=== PATIENT | female | born 1980 ===

== ENCOUNTER 2017-07-07 13:10 | Emergency (ER) | payer MEDICAID ==
[2017-07-07 13:43] VITALS: BP 103/65; PULSE 91; RESP 20; TEMP 99.5; O2SAT 98
[2017-07-07] MEDS ORDERED: Sodium Chloride 0.9% 1,000 ML IV ONE (13:49)
--- NOTE | 2017-07-07 13:56 | C.PDOC ---
Time Seen by Provider: 07/07/17 13:41 Chief Complaint (Nursing): Chest Pain Past Medical History Vital Signs: Last Vital Signs Temp 99.5 F 07/07/17 13:35 Pulse 91 H 07/07/17 13:35 Resp 20 07/07/17 13:35 BP 103/65 07/07/17 13:35 Pulse Ox 98 07/07/17 13:35 - Medical History PMH: Pericarditis Family History: States: Unknown Family Hx - Social History Hx Tobacco Use: Yes Hx Alcohol Use: Yes Hx Substance Use: No - Immunization History Hx Tetanus Toxoid Vaccination: Yes Hx Influenza Vaccination: Yes Hx Pneumococcal Vaccination: Yes ED Course And Treatment O2 Sat by Pulse Oximetry: 98 Disposition - Disposition Forms: [employer] (Danish)
[2017-07-07 14:11] LABS: BASO # 0.1 K/uL (0.0-0.2); BASO % 0.8 % (0.0-2.0); EOS # 0.1 K/uL (0.0-0.7); EOS % 0.9 % (0.0-4.0); HEMATOCRIT 33.4 % (34.0-47.0); LYMPH # 2.3 K/uL (1.0-4.3); LYMPH % 27.5 % (20.0-40.0); MEAN CORPUSCULAR HEMOGLOBIN 25.8 pg (27.0-31.0); MEAN CORPUSCULAR HGB CONC 32.6 g/dL (33.0-37.0); MEAN PLATELET VOLUME 7.7 fL (7.2-11.7); MONO # 0.5 K/uL (0.0-0.8); MONO % 6.4 % (0.0-10.0); RED CELL DISTRIBUTION WIDTH 15.3 % (11.5-14.5); WHITE BLOOD COUNT 8.4 K/uL (4.8-10.8)
--- NOTE | 2017-07-07 14:15 | RAD ---
PROCEDURE: CHEST RADIOGRAPH, 1 VIEW HISTORY: chest pain COMPARISON: None available. FINDINGS: LUNGS: Poor inspiration with low lung volumes, crowded bronchovascular markings and mild bibasilar atelectasis. PLEURA: No pneumothorax or pleural fluid seen. CARDIOVASCULAR: Normal. OSSEOUS STRUCTURES: No significant abnormalities. VISUALIZED UPPER ABDOMEN: Normal. OTHER FINDINGS: None. IMPRESSION: Poor inspiration with low lung volumes, crowded bronchovascular markings and mild bibasilar atelectasis.
[2017-07-07 14:22] LABS: ALCOHOL SERUM < 10 mg/dl (0-10); ALKALINE PHOSPHATASE 54 U/L (38-126); ALT/SGPT 25 U/L (9-52); AST/SGOT 20 U/L (14-36); BILIRUBIN,TOTAL 0.3 mg/dL (0.2-1.3); BLOOD UREA NITROGEN 18 mg/dL (7-17); CALCIUM 8.9 mg/dl (8.6-10.4); CARBON DIOXIDE 21 mmol/L (22-30); CHLORIDE 104 mmol/L (98-107); GFR AFRICAN-AMERICAN > 60; GLUCOSE,RANDOM 109 mg/dL (65-105); POTASSIUM 4.1 mmol/L (3.6-5.2); SODIUM 137 mmol/L (132-148); TOTAL PROTEIN 6.2 g/dL (6.3-8.3)
[2017-07-07 14:29] LABS: ALB/GLOB RATIO 1.1 (1.0-2.1)
[2017-07-07 14:31] LABS: MEAN CELL VOLUME 79.1 fL (81.0-99.0)
--- NOTE | 2017-07-07 15:10 | C.PDOC ---
History Of Present Illness 36 y/o female brought in by EMS for midsternal chest pain and bodyaches for 5 days. Patient is homeless and is sleepy on evaluation, limited exam. EMS reports patient was found sleeping but denied any alcohol or drug use. Time Seen by Provider: 07/07/17 13:41 Chief Complaint (Nursing): Chest Pain History Per: EMS History/Exam Limitations: clinical condition Onset/Duration Of Symptoms: Days (5 days ) Current Symptoms Are (Timing): Still Present Recent travel outside of the [place]: No Past Medical History Reviewed: Historical Data, Nursing Documentation, Vital Signs Vital Signs: Last Vital Signs Temp 99.5 F 07/07/17 13:35 Pulse 91 H 07/07/17 13:35 Resp 20 07/07/17 13:35 BP 103/65 07/07/17 13:35 Pulse Ox 98 07/07/17 15:49 - Medical History PMH: Pericarditis Family History: States: Unknown Family Hx - Social History Hx Tobacco Use: Yes Hx Alcohol Use: Yes Hx Substance Use: No - Immunization History Hx Tetanus Toxoid Vaccination: Yes Hx Influenza Vaccination: Yes Hx Pneumococcal Vaccination: Yes Review Of Systems Review Of Systems: ROS cannot be obtained secondary to pt's inabilty to answer questions. (patient sleepy on exam) Physical Exam - Physical Exam Appears: Non-toxic, In Acute Distress, Unkempt, Other (somnolent but arousable) Skin: Warm, Dry, No Rash, No Ecchymosis Head: Atraumatic, Normacephalic Eye(s): bilateral: Normal Inspection, PERRL (no pinpoint pupils) Oral Mucosa: Moist Neck: Normal ROM Chest: Symmetrical, Tenderness (midsternum ) Cardiovascular: Rhythm Regular, No Murmur Respiratory: Normal Breath Sounds, No Rales, No Rhonchi, No Wheezing Gastrointestinal/Abdominal: Bowel Sounds (active ), Soft, No Tenderness, No Guarding Extremity: Normal ROM, Other (bilaterally atraumatic; normal color and temperature) Neurological/Psych: Other (oriented to person and place ) Gait: Unable To Assess ED Course And Treatment - Laboratory Results Result Diagrams: 07/07/17 14:05 07/07/17 14:05 ECG: Interpreted By Me, Viewed By Me ECG Rhythm: Sinus Rhythm ECG Interpretation: No Acute Changes Rate From EC O2 Sat by Pulse Oximetry: 98 (room air ) Progress Note: EKG, CXR, UA, and blood work were ordered. Patient was given IV fluids. Medical Decision Making Medical Decision Making: Prior records reviewed: Patient last seen at 03/10/17 at [facility] for chest pain with normal workup and discharged. Patient has prior ER visits for similar complaints and long ER stay. Plan: * EKG * Labs * CXR Progress: Labs and CXR reviewed with no significant findings. Patient re-evaluated and continues to sleep comfortably, easily arousable. EtOh is negative. Patient has stable vital signs and no signs of trauma. Patient appears to be bed seeking. Will discharge. Disposition Counseled Patient/Family Regarding: Diagnosis, Need For Followup - Disposition Disposition: HOME/ ROUTINE Disposition Time: 15:09 Condition: STABLE Additional Instructions: Follow up with the clinic in 2-5 days for further evaluation Instructions: Musculoskeletal Pain (ED) Forms: [employer] (Kuwaiti) - POA Present On Arrival: None - Clinical Impression Clinical Impression: Chest discomfort, Homeless single person - Scribe Statement The provider has reviewed the documentation as recorded by the Scribe Suzette Kessler All medical record entries made by the Scribe were at my direction and personally dictated by me. I have reviewed the chart and agree that the record accurately reflects my personal performance of the history, physical exam, medical decision making, and the department course for this patient. I have also personally directed, reviewed, and agree with the discharge instructions and disposition.
--- NOTE | 2017-07-09 18:20 | CARD ---
APPROVED REPORT EKG Measurement Heart [id number] <Conclusion> Normal sinus rhythm Possible Left atrial enlargement Early repolarization Borderline ECG
== END 2017-07-07 15:12 | disposition home or self-care (01) ==
LOC: C.ER 13:10
DX: R07.89 Other chest pain (principal); Z59.0 Homelessness

== ENCOUNTER 2017-07-09 03:14 | Emergency (ER) | payer MEDICAID, OTHER ==
--- NOTE | 2017-07-09 03:23 | C.PDOC ---
History Of Present Illness Patient with a Hx of pericarditis who presents to the ER with a complaint of chest discomfort. Patient states it feels similar to past episodes of her pericarditis. Denies fever, chills, cough, SOB, palpitations, or drug use. Patient was seen last night here and at [facility]. Time Seen by Provider: 07/09/17 03:23 Chief Complaint (Nursing): Chest Pain History Per: Patient History/Exam Limitations: no limitations Onset/Duration Of Symptoms: Days Current Symptoms Are (Timing): Still Present Severity: Mild Pain Scale Rating Of: 2 Associated Symptoms: denies: Nausea, Dyspnea, Diaphoresis, Syncope Modifying Factors: None Exacerbating Factors: None Alleviating Factors: None Recent travel outside of the [place]: No Past Medical History Reviewed: Historical Data, Nursing Documentation, Vital Signs Vital Signs: Last Vital Signs Temp 97.9 F 07/09/17 03:21 Pulse 84 07/09/17 03:21 Resp 20 07/09/17 03:21 BP 108/70 07/09/17 03:21 Pulse Ox 98 07/09/17 04:35 - Medical History PMH: Pericarditis Surgical History: No Surg Hx Family History: States: Unknown Family Hx - Social History Hx Tobacco Use: Yes Hx Alcohol Use: Yes Hx Substance Use: No - Immunization History Hx Tetanus Toxoid Vaccination: Yes Hx Influenza Vaccination: Yes Hx Pneumococcal Vaccination: Yes Review Of Systems Constitutional: Negative for: Fever, Chills Cardiovascular: Positive for: Chest Pain (Discomfort) Respiratory: Negative for: Cough, Shortness of Breath Physical Exam - Physical Exam Appears: Non-toxic Skin: Warm, Dry Head: Normacephalic Eye(s): bilateral: Normal Inspection Oral Mucosa: Moist Chest: Symmetrical, No Tenderness Cardiovascular: Rhythm Regular Respiratory: No Rales, No Rhonchi, No Wheezing Back: No CVA Tenderness Extremity: Normal ROM Extremity: Bilateral: Atraumatic Neurological/Psych: Oriented x3 Gait: Steady ED Course And Treatment ECG: Interpreted By Me, Viewed By Me ECG Rhythm: Sinus Rhythm (88), Nonspecific Changes O2 Sat by Pulse Oximetry: 98 Pulse Ox Interpretation: Normal Progress Note: Patient had blood work done at [facility] a few hours ago with normal results. 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 Patient is cleared for discharge by dr Cr Reevaluation Time: 04:51 Reassessment Condition: Improved Disposition Counseled Patient/Family Regarding: Studies Performed, Diagnosis, Need For Followup - Disposition Referrals: [facility] [Outside] Disposition: HOME/ ROUTINE Disposition Time: 03:23 Condition: FAIR Instructions: Depression (DC) Forms: [employer] [facility] (Persian) - Clinical Impression Clinical Impression: Major depressive disorder, single episode, unspecified - Scribe Statement The provider has reviewed the documentation as recorded by the Scriblizeth Harrington All medical record entries made by the Haleyibilzeth were at my direction and personally dictated by me. I have reviewed the chart and agree that the record accurately reflects my personal performance of the history, physical exam, medical decision making, and the department course for this patient. I have also personally directed, reviewed, and agree with the discharge instructions and disposition.
[2017-07-09 04:58] VITALS: BP 111/73; PULSE 74; RESP 18; TEMP 97.6; O2SAT 99
--- NOTE | 2017-07-09 18:34 | CARD ---
APPROVED REPORT EKG Measurement Heart [id number] AR [id number] <Conclusion> Normal sinus rhythm Normal ECG
== END 2017-07-09 05:00 | disposition home or self-care (01) ==
LOC: C.ER 03:14
DX: F32.9 Major depressive disorder, single episode, unspecified (principal)

== ENCOUNTER 2017-07-25 11:24 | Emergency (ER) | payer MEDICAID ==
[2017-07-25 11:30] VITALS: BMI 23.1
[2017-07-25 11:35] VITALS: RESP 18
[2017-07-25 11:52] LABS: BASO # 0.1 K/uL (0.0-0.2); BASO % 1.3 % (0.0-2.0); EOS % 0.3 % (0.0-4.0); HEMATOCRIT 32.2 % (34.0-47.0); LYMPH # 2.4 K/uL (1.0-4.3); LYMPH % 20.7 % (20.0-40.0); MEAN CELL VOLUME 77.8 fL (81.0-99.0); MEAN CORPUSCULAR HEMOGLOBIN 26.1 pg (27.0-31.0); MEAN CORPUSCULAR HGB CONC 33.5 g/dL (33.0-37.0); MEAN PLATELET VOLUME 8.3 fL (7.2-11.7); MONO # 0.6 K/uL (0.0-0.8); MONO % 5.4 % (0.0-10.0); RED CELL DISTRIBUTION WIDTH 15.8 % (11.5-14.5); WHITE BLOOD COUNT 11.5 K/uL (4.8-10.8)
[2017-07-25 11:58] LABS: CHLORIDE 100 mmol/L (98-107); SODIUM 137 mmol/L (132-148)
[2017-07-25 11:59] LABS: POTASSIUM 3.7 mmol/L (3.6-5.2)
[2017-07-25 12:01] LABS: ALB/GLOB RATIO 1.3 (1.0-2.1); ALKALINE PHOSPHATASE 59 U/L (38-126); ALT/SGPT 25 U/L (9-52); AST/SGOT 20 U/L (14-36); BILIRUBIN,TOTAL 0.2 mg/dL (0.2-1.3); BLOOD UREA NITROGEN 18 mg/dL (7-17); CARBON DIOXIDE 23 mmol/L (22-30); GFR AFRICAN-AMERICAN > 60; GLUCOSE,RANDOM 84 mg/dL (65-105); TOTAL PROTEIN 6.4 g/dL (6.3-8.3)
[2017-07-25 12:02] LABS: CALCIUM 8.8 mg/dl (8.6-10.4)
[2017-07-25 12:12] LABS: RBC URINE 10 /hpf (0-3); URINE BILIRUBIN NEGATIVE (NEGATIVE); URINE BLOOD 3+ (NEGATIVE); URINE COLOR Yellow (YELLOW); URINE GLUCOSE (UA) NORMAL (Normal); URINE KETONE NEGATIVE (NEGATIVE); URINE LEUKOCYTE ESTERASE NEG Leu/uL (Negative); URINE PROTEIN NEGATIVE (NEGATIVE); URINE UROBILINOGEN NORMAL mg/dL (0.2-1.0); WBC URINE 1 /hpf (0-5)
--- NOTE | 2017-07-25 12:25 | RAD ---
PROCEDURE: CHEST RADIOGRAPH, 1 VIEW HISTORY: Chest pain COMPARISON: 07/07/2017 FINDINGS: LUNGS: Mild venous congestion. Mild patchy increased markings at both lung bases. PLEURA: No pneumothorax or pleural fluid seen. CARDIOVASCULAR: Normal. OSSEOUS STRUCTURES: No significant abnormalities. VISUALIZED UPPER ABDOMEN: Normal. OTHER FINDINGS: None. IMPRESSION: Mild venous congestion. Mild patchy increased markings at both lung bases.
--- NOTE | 2017-07-25 12:52 | C.PDOC ---
History Of Present Illness 36 y/o female brought to ED by ambulance for evaluation of onset of non- radiating chest pain that began while eating today. Pt states that pain improved prior to arrival. Pt describes discomfort as soreness. Patient has h/ o pericarditis 3 years ago. She denies shortness of breath, cough, palpitations , nausea, vomiting, headache, dizziness, fever/chills, diaphoresis, lower extremity pain/swelling, injuries/falls, recent illness. Time Seen by Provider: 07/25/17 11:27 Chief Complaint (Nursing): Chest Pain History Per: Patient History/Exam Limitations: no limitations Onset/Duration Of Symptoms: Hrs Current Symptoms Are (Timing): Better Severity: Mild Quality: Other (sore) Associated Symptoms: denies: Nausea, Dyspnea, Diaphoresis, Syncope Modifying Factors: None Exacerbating Factors: None Alleviating Factors: None Recent travel outside of the [place]: No Additional History Per: Patient Past Medical History Reviewed: Historical Data, Nursing Documentation, Vital Signs Vital Signs: Last Vital Signs Temp 98.2 F 07/25/17 13:09 Pulse 84 07/25/17 13:09 Resp 18 07/25/17 13:09 BP 115/68 07/25/17 13:09 Pulse Ox 98 07/27/17 18:06 - Medical History PMH: Pericarditis Family History: States: No Known Family Hx - Social History Hx Tobacco Use: Yes Hx Alcohol Use: Yes Hx Substance Use: No - Immunization History Hx Tetanus Toxoid Vaccination: Yes Hx Influenza Vaccination: Yes Hx Pneumococcal Vaccination: Yes Review Of Systems Except As Marked, All Systems Reviewed And Found Negative. Constitutional: Negative for: Fever, Chills Cardiovascular: Positive for: Chest Pain. Negative for: Palpitations, Edema, Light Headedness Respiratory: Negative for: Cough, Shortness of Breath Gastrointestinal: Negative for: Nausea, Vomiting, Abdominal Pain Skin: Negative for: Rash, Bruising Neurological: Negative for: Headache, Dizziness Physical Exam - Physical Exam Appears: Well, Non-toxic, No Acute Distress Skin: Warm, Dry, No Rash Head: Normacephalic Eye(s): bilateral: Normal Inspection Oral Mucosa: Moist Neck: Supple Chest: Symmetrical, No Tenderness Cardiovascular: Rhythm Regular, No Murmur Respiratory: Normal Breath Sounds, No Rales, No Rhonchi, No Wheezing Gastrointestinal/Abdominal: Normal Exam, Bowel Sounds, Soft, No Tenderness Back: No CVA Tenderness Extremity: Normal ROM, No Pedal Edema, No Calf Tenderness Neurological/Psych: Oriented x3 ED Course And Treatment - Laboratory Results Result Diagrams: 07/25/17 11:46 07/25/17 11:46 ECG: Interpreted By Me, Viewed By Me ECG Rhythm: Sinus Rhythm ECG Interpretation: Normal Interpretation Of ECG: Normal axis. No acute ST/T wave elevation or depression. No WA depressions. Rate From EC (bpm) O2 Sat by Pulse Oximetry: 98 (on RA) Pulse Ox Interpretation: Normal Progress Note: Blood work, UA, EKG, CXR ordered and reviewed. Patient was given PO Tylenol for pain. Reevaluation Time: 12:50 Reassessment Condition: Improved (On re-eval, pt reports feeling better, has no chest pain, palpitations or shortness of breath. Patient is swell appearing, with normal vitals, and is comfortable being discharged home. She was instructed to follow up with PMD/clinic in 1-2 days, and understands she should return to ED if symptoms worsen/return.) Medical Decision Making Medical Decision Making: No h/o DM, HTN, hyperlipidemia, smoking or family h/o VA/CAD Disposition Counseled Patient/Family Regarding: Studies Performed, Diagnosis, Need For Followup, Rx Given - Disposition Referrals: [facility] [Outside] Disposition: HOME/ ROUTINE Disposition Time: 12:50 Condition: STABLE Additional Instructions: FOLLOW UP WITH YOUR DOCTOR/CLINC IN 1-2 DAYS RETURN TO ER IF SYMPTOMS WORSEN Instructions: Noncardiac Chest Pain (ED) Forms: [employer] (Ecuadorean) Print Language: ALBANIAN - Clinical Impression Clinical Impression: Non-cardiac chest pain - Scribe Statement The provider has reviewed the documentation as recorded by the Scribe Anthony Fermin All medical record entries made by the Haleyiblizeth were at my direction and personally dictated by me. I have reviewed the chart and agree that the record accurately reflects my personal performance of the history, physical exam, medical decision making, and the department course for this patient. I have also personally directed, reviewed, and agree with the discharge instructions and disposition.
[2017-07-25 13:11] VITALS: BP 115/68; PULSE 84; TEMP 98.2
[2017-07-25 15:12] VITALS: O2SAT 98
--- NOTE | 2017-07-27 21:57 | CARD ---
APPROVED REPORT EKG Measurement Heart [id number] <Conclusion> Normal sinus rhythm Normal ECG
== END 2017-07-25 13:20 | disposition home or self-care (01) ==
LOC: C.ER 11:24
DX: R07.89 Other chest pain (principal)